=== PATIENT | female | born 1945 | race Native Hawaiian/Other Pacific Islander ===

== ENCOUNTER 2016-11-19 08:49 | Outpatient (CLI) | payer OTHER | END 2016-11-19 19:00 | disposition home or self-care (01) | LOC: MAMMO 08:49 | DX: Z12.31 Encounter for screening mammogram for malignant neoplasm of breast (principal) | CPT/HCPCS: G0202-TC ==

== ENCOUNTER 2016-12-17 08:46 | Outpatient (CLI) | payer OTHER | END 2016-12-17 09:50 | disposition home or self-care (01) | LOC: MRI 08:46 | DX: M54.6 Pain in thoracic spine (principal); S22.000A Wedge compression fracture of unspecified thoracic vertebra, initial encounter for closed fracture ==

== ENCOUNTER 2017-04-15 09:47 | Outpatient (CLI) | payer OTHER | END 2017-04-15 10:50 | disposition home or self-care (01) | LOC: LABW 09:47 | DX: E16.1 Other hypoglycemia (principal); K92.2 Gastrointestinal hemorrhage, unspecified | CPT/HCPCS: 82270 ==

== ENCOUNTER 2017-07-08 07:34 | Outpatient (CLI) | payer OTHER ==
[2017-07-08 08:25] LABS: PLATELET COUNT 166 K/uL (152-353)
[2017-07-08 08:26] LABS: POTASSIUM 4.6 mmol/L (3.6-5.2)
== END 2017-07-08 21:54 | disposition home or self-care (01) ==
LOC: LABW 07:34
PROVIDERS: Nurse Practitioner Family
DX: E11.9 Type 2 diabetes mellitus without complications (principal); I10 Essential (primary) hypertension; E78.4 Other hyperlipidemia; D64.89 Other specified anemias
CPT/HCPCS: 36415; 80053; 80061; 83036; 85027

== ENCOUNTER 2017-11-21 08:23 | Outpatient (CLI) | payer OTHER | END 2017-11-21 22:40 | disposition home or self-care (01) | LOC: MAMMO 08:23 | DX: Z12.31 Encounter for screening mammogram for malignant neoplasm of breast (principal) ==

== ENCOUNTER 2018-07-06 09:48 | Outpatient (CLI) | payer OTHER | END 2018-07-06 22:59 | disposition home or self-care (01) | LOC: MAMMO 09:48 | DX: Z12.31 Encounter for screening mammogram for malignant neoplasm of breast (principal); N63.0 Unspecified lump in unspecified breast; R92.8 Other abnormal and inconclusive findings on diagnostic imaging of breast ==

== ENCOUNTER 2018-07-14 07:48 | Outpatient (CLI) | payer OTHER | END 2018-07-14 22:44 | disposition home or self-care (01) | LOC: US 07:48 | DX: N63.0 Unspecified lump in unspecified breast (principal); R92.8 Other abnormal and inconclusive findings on diagnostic imaging of breast ==

== ENCOUNTER 2018-08-18 09:48 | Outpatient (CLI) | payer OTHER ==
[2018-08-18 10:24] LABS: PLATELET COUNT 175 K/uL (152-353)
[2018-08-18 10:29] LABS: POTASSIUM 4.2 mmol/L (3.6-5.2)
== END 2018-08-18 19:20 | disposition home or self-care (01) ==
LOC: RESP 09:48
PROVIDERS: Surgery
DX: C50.919 Malignant neoplasm of unspecified site of unspecified female breast (principal)
CPT/HCPCS: 36415; 80048; 85027; 93005

== ENCOUNTER 2018-08-25 13:27 | Outpatient (CLI) | payer OTHER ==
[2018-08-25 14:00] LABS: PLATELET COUNT 160 K/uL (152-353)
[2018-08-25 14:30] LABS: POTASSIUM 4.4 mmol/L (3.6-5.2)
== END 2018-08-25 20:33 | disposition home or self-care (01) ==
LOC: LABW 13:27
PROVIDERS: Internal Medicine Gastroenterology
DX: D50.8 Other iron deficiency anemias (principal)
CPT/HCPCS: 36415; 80053; 82728; 82746; 83540; 83550; 85027; 85044

== ENCOUNTER 2018-08-26 08:18 | Outpatient (CLI) | payer OTHER | END 2018-08-26 21:01 | disposition home or self-care (01) | LOC: LAB 08:18 | DX: D50.8 Other iron deficiency anemias (principal) | CPT/HCPCS: 82272 ==

== ENCOUNTER 2019-03-30 10:13 | Outpatient (CLI) | payer OTHER | END 2019-03-30 20:09 | disposition home or self-care (01) | LOC: LABW 10:13 | DX: D64.9 Anemia, unspecified (principal) | CPT/HCPCS: 36415; 83540; 83550 ==

== ENCOUNTER 2019-06-15 08:24 | Outpatient (CLI) | payer OTHER | END 2019-06-15 19:34 | disposition home or self-care (01) | LOC: US 08:24 | DX: E11.9 Type 2 diabetes mellitus without complications (principal); I10 Essential (primary) hypertension; E78.49 Other hyperlipidemia; M79.604 Pain in right leg; N19 Unspecified kidney failure ==

== ENCOUNTER 2019-07-12 09:28 | Outpatient (CLI) | payer OTHER | END 2019-07-12 22:37 | disposition home or self-care (01) | LOC: MAMMO 09:28 | DX: C50.912 Malignant neoplasm of unspecified site of left female breast (principal); Z17.0 Estrogen receptor positive status [ER+]; N64.89 Other specified disorders of breast | CPT/HCPCS: G0279 ==

== ENCOUNTER 2019-09-15 14:39 | Outpatient (CLI) | payer OTHER ==
[2019-09-15 14:59] LABS: PLATELET COUNT 123 K/uL (152-353)
[2019-09-15 15:07] LABS: POTASSIUM 4.7 mmol/L (3.6-5.2)
== END 2019-09-15 21:47 | disposition home or self-care (01) ==
LOC: LABW 14:39
PROVIDERS: Internal Medicine
DX: I12.9 Hypertensive chronic kidney disease with stage 1 through stage 4 chronic kidney disease, or unspecified chronic kidney disease (principal); N18.3 Chronic kidney disease, stage 3 (moderate); E11.29 Type 2 diabetes mellitus with other diabetic kidney complication
CPT/HCPCS: 36415; 80048; 81000; 82040; 82570; 83883; 84100; 84155; 84550; 85027; 86038

== ENCOUNTER 2019-10-07 08:47 | Outpatient (CLI) | payer OTHER | END 2019-10-07 21:50 | disposition home or self-care (01) | LOC: LAB 08:47 | DX: K64.0 First degree hemorrhoids (principal) | CPT/HCPCS: 82272 ==

== ENCOUNTER 2020-05-29 11:48 | Outpatient (CLI) | payer OTHER ==
[2020-05-29 12:27] LABS: PLATELET COUNT 132 K/uL (152-353)
== END 2020-05-29 23:14 | disposition home or self-care (01) ==
LOC: LABW 11:48
PROVIDERS: ATTEND Nurse Practitioner Family
DX: D69.3 Immune thrombocytopenic purpura (principal)
CPT/HCPCS: 36415; 85027

== ENCOUNTER 2020-07-24 09:04 | Outpatient (CLI) | payer OTHER | END 2020-07-24 19:28 | disposition home or self-care (01) | LOC: MAMMO 09:04 | PROVIDERS: ATTEND Nurse Practitioner Family | DX: Z12.31 Encounter for screening mammogram for malignant neoplasm of breast (principal); Z85.3 Personal history of malignant neoplasm of breast; E11.9 Type 2 diabetes mellitus without complications; E78.49 Other hyperlipidemia; I10 Essential (primary) hypertension | CPT/HCPCS: G0279 ==

== ENCOUNTER 2020-11-02 07:56 | Outpatient (CLI) | payer OTHER ==
[2020-11-02 08:45] LABS: PLATELET COUNT 115 K/uL (152-353)
[2020-11-02 09:11] LABS: POTASSIUM 6.3 mmol/L (3.6-5.2)
== END 2020-11-02 20:18 | disposition home or self-care (01) ==
LOC: LABW 07:56
PROVIDERS: ATTEND Internal Medicine Gastroenterology
DX: D50.8 Other iron deficiency anemias (principal)
CPT/HCPCS: 36415; 80053; 82728; 82746; 83540; 83550; 85027; 85044

== ENCOUNTER 2020-11-02 10:25 | Emergency (ER) | payer OTHER ==
[~2020-11-02] VITALS: Ht 152.4 cm; Wt 79.4 kg
[2020-11-02 10:30] VITALS: BP 175/56; TEMP 97.1
[2020-11-02 11:31] LABS: POTASSIUM 5.6 mmol/L (3.6-5.2)
== END 2020-11-02 11:54 | disposition home or self-care (01) ==
LOC: ED 10:25
PROVIDERS: Emergency Medicine Emergency Medical Services
DX: E87.5 Hyperkalemia (principal)
CPT/HCPCS: 80048; 93005; 99283

== ENCOUNTER 2020-11-07 08:14 | Outpatient (CLI) | payer OTHER | END 2020-11-07 19:18 | disposition home or self-care (01) | LOC: LAB 08:14 | PROVIDERS: ATTEND Internal Medicine Gastroenterology | DX: D50.8 Other iron deficiency anemias (principal) | CPT/HCPCS: 82272 ==

== ENCOUNTER 2020-12-01 09:34 | Outpatient (CLI) | payer OTHER | END 2020-12-01 19:29 | disposition home or self-care (01) | LOC: CT 09:34 | PROVIDERS: ATTEND Nurse Practitioner Family | DX: Z85.89 Personal history of malignant neoplasm of other organs and systems (principal); R63.4 Abnormal weight loss; R97.8 Other abnormal tumor markers; N19 Unspecified kidney failure | CPT/HCPCS: 36415; 82565; 84520; Q9963 ==

== ENCOUNTER 2020-12-07 13:01 | Outpatient (CLI) | payer OTHER | END 2020-12-07 19:12 | disposition home or self-care (01) | LOC: MRI 13:01 | PROVIDERS: ATTEND Nurse Practitioner Family | DX: K86.89 Other specified diseases of pancreas (principal); R97.8 Other abnormal tumor markers; R97.0 Elevated carcinoembryonic antigen [CEA]; R63.4 Abnormal weight loss | CPT/HCPCS: A9576 ==

== ENCOUNTER 2021-02-12 09:26 | Outpatient (CLI) | payer OTHER ==
[2021-02-12 09:41] LABS: PLATELET COUNT 111 K/uL (152-353)
[2021-02-12 10:23] LABS: POTASSIUM 4.1 mmol/L (3.6-5.2)
== END 2021-02-12 21:47 | disposition home or self-care (01) ==
LOC: LABW 09:26
PROVIDERS: ATTEND Internal Medicine Medical Oncology
DX: C25.1 Malignant neoplasm of body of pancreas (principal); C25.9 Malignant neoplasm of pancreas, unspecified; C50.812 Malignant neoplasm of overlapping sites of left female breast; K86.2 Cyst of pancreas; R97.8 Other abnormal tumor markers; E55.9 Vitamin D deficiency, unspecified
CPT/HCPCS: 36415; 80053; 85027

== ENCOUNTER 2021-02-26 09:01 | Outpatient (CLI) | payer OTHER ==
[2021-02-26 09:31] LABS: PLATELET COUNT 87 K/uL (152-353)
[2021-02-26 09:40] LABS: POTASSIUM 4.1 mmol/L (3.6-5.2)
== END 2021-02-26 20:58 | disposition home or self-care (01) ==
LOC: LABW 09:01
PROVIDERS: ATTEND Internal Medicine Medical Oncology
DX: C25.1 Malignant neoplasm of body of pancreas (principal); C25.9 Malignant neoplasm of pancreas, unspecified; C50.812 Malignant neoplasm of overlapping sites of left female breast; K86.2 Cyst of pancreas; R97.8 Other abnormal tumor markers; E55.9 Vitamin D deficiency, unspecified
CPT/HCPCS: 36415; 80053; 85027

== ENCOUNTER 2021-03-04 09:42 | Emergency (ER) | payer OTHER ==
[~2021-03-04] VITALS: Ht 152.4 cm; Wt 71.7 kg
[2021-03-04 10:28] VITALS: BP 118/73; TEMP 99.2
== END 2021-03-04 10:28 | disposition home or self-care (01) ==
LOC: ED 09:42
DX: L03.114 Cellulitis of left upper limb (principal)
CPT/HCPCS: 99282

== ENCOUNTER 2021-03-18 08:38 | Outpatient (CLI) | payer OTHER ==
[2021-03-18 09:00] LABS: PLATELET COUNT 132 K/uL (152-353)
[2021-03-18 09:11] LABS: POTASSIUM 4.4 mmol/L (3.6-5.2)
== END 2021-03-18 20:08 | disposition home or self-care (01) ==
LOC: LABW 08:38
PROVIDERS: ATTEND Internal Medicine Medical Oncology
DX: C50.812 Malignant neoplasm of overlapping sites of left female breast (principal); C25.1 Malignant neoplasm of body of pancreas; E55.9 Vitamin D deficiency, unspecified; K86.2 Cyst of pancreas; R97.8 Other abnormal tumor markers; D69.59 Other secondary thrombocytopenia; K59.03 Drug induced constipation
CPT/HCPCS: 36415; 80053; 85027

== ENCOUNTER 2021-03-26 08:21 | Outpatient (CLI) | payer OTHER ==
[2021-03-26 08:43] LABS: PLATELET COUNT 54 K/uL (152-353)
[2021-03-26 09:01] LABS: POTASSIUM 4.2 mmol/L (3.6-5.2)
== END 2021-03-26 18:51 | disposition home or self-care (01) ==
LOC: LABW 08:21
PROVIDERS: ATTEND Internal Medicine Medical Oncology
DX: C50.812 Malignant neoplasm of overlapping sites of left female breast (principal); C25.1 Malignant neoplasm of body of pancreas; C25.9 Malignant neoplasm of pancreas, unspecified; L02.818 Cutaneous abscess of other sites; E55.9 Vitamin D deficiency, unspecified; K86.2 Cyst of pancreas; R97.8 Other abnormal tumor markers; D69.59 Other secondary thrombocytopenia; K59.03 Drug induced constipation
CPT/HCPCS: 36415; 80053; 85027

== ENCOUNTER 2021-04-09 09:07 | Outpatient (CLI) | payer OTHER ==
[2021-04-09 09:31] LABS: PLATELET COUNT 135 K/uL (152-353)
[2021-04-09 09:54] LABS: POTASSIUM 4.4 mmol/L (3.6-5.2)
== END 2021-04-09 19:48 | disposition home or self-care (01) ==
LOC: LABW 09:07
PROVIDERS: ATTEND Internal Medicine Medical Oncology
DX: L02.91 Cutaneous abscess, unspecified (principal); C25.1 Malignant neoplasm of body of pancreas; C25.9 Malignant neoplasm of pancreas, unspecified; C50.812 Malignant neoplasm of overlapping sites of left female breast; D69.59 Other secondary thrombocytopenia; K59.03 Drug induced constipation; K86.2 Cyst of pancreas; R97.8 Other abnormal tumor markers; E55.9 Vitamin D deficiency, unspecified
CPT/HCPCS: 36415; 80053; 85027

== ENCOUNTER 2021-04-23 09:06 | Outpatient (CLI) | payer OTHER ==
[2021-04-23 09:21] LABS: PLATELET COUNT 109 K/uL (152-353)
[2021-04-23 09:37] LABS: POTASSIUM 4.7 mmol/L (3.6-5.2)
== END 2021-04-23 20:53 | disposition home or self-care (01) ==
LOC: LABW 09:06
PROVIDERS: ATTEND Internal Medicine Medical Oncology
DX: L02.91 Cutaneous abscess, unspecified (principal); C25.1 Malignant neoplasm of body of pancreas; C25.9 Malignant neoplasm of pancreas, unspecified; C50.812 Malignant neoplasm of overlapping sites of left female breast; D69.59 Other secondary thrombocytopenia; K59.03 Drug induced constipation; K86.2 Cyst of pancreas; R97.8 Other abnormal tumor markers; E55.9 Vitamin D deficiency, unspecified
CPT/HCPCS: 36415; 80053; 85027

== ENCOUNTER 2021-06-05 07:52 | Outpatient (CLI) | payer OTHER ==
[2021-06-05 08:20] LABS: PLATELET COUNT 313 K/uL (152-353)
[2021-06-05 08:33] LABS: POTASSIUM 4.3 mmol/L (3.6-5.2)
== END 2021-06-05 18:54 | disposition home or self-care (01) ==
LOC: LABW 07:52
PROVIDERS: ATTEND Internal Medicine Medical Oncology
DX: L02.818 Cutaneous abscess of other sites (principal); C25.1 Malignant neoplasm of body of pancreas; C25.9 Malignant neoplasm of pancreas, unspecified; C50.812 Malignant neoplasm of overlapping sites of left female breast; D69.59 Other secondary thrombocytopenia; K59.03 Drug induced constipation; K86.2 Cyst of pancreas; R97.8 Other abnormal tumor markers; E55.9 Vitamin D deficiency, unspecified
CPT/HCPCS: 36415; 80053; 85027; 86316

== ENCOUNTER 2021-07-27 08:45 | Outpatient (CLI) | payer OTHER | END 2021-07-27 18:52 | disposition home or self-care (01) | LOC: MAMMO 08:45 | PROVIDERS: ATTEND Nurse Practitioner Family | DX: C50.512 Malignant neoplasm of lower-outer quadrant of left female breast (principal); Z17.0 Estrogen receptor positive status [ER+] | CPT/HCPCS: G0279 ==

== ENCOUNTER 2021-10-31 10:11 | Outpatient (CLI) | payer OTHER | END 2021-10-31 18:55 | disposition home or self-care (01) | LOC: RAD 10:11 | PROVIDERS: ATTEND Nurse Practitioner Family | DX: R05.3 Chronic cough (principal) ==

== ENCOUNTER 2021-12-26 07:36 | Outpatient (CLI) | payer OTHER | END 2021-12-26 23:20 | disposition home or self-care (01) | LOC: RAD 07:36 | PROVIDERS: ATTEND Internal Medicine Medical Oncology | DX: Z51.11 Encounter for antineoplastic chemotherapy (principal); C50.912 Malignant neoplasm of unspecified site of left female breast; I10 Essential (primary) hypertension; C25.1 Malignant neoplasm of body of pancreas; C25.9 Malignant neoplasm of pancreas, unspecified; C50.812 Malignant neoplasm of overlapping sites of left female breast; I82.402 Acute embolism and thrombosis of unspecified deep veins of left lower extremity; D50.8 Other iron deficiency anemias; K90.89 Other intestinal malabsorption; N95.8 Other specified menopausal and perimenopausal disorders ==

== ENCOUNTER 2022-04-29 11:17 | Outpatient (CLI) | payer OTHER | END 2022-04-29 19:05 | disposition home or self-care (01) | LOC: RAD 11:17 | PROVIDERS: ATTEND Nurse Practitioner Family | DX: M79.602 Pain in left arm (principal); M25.512 Pain in left shoulder ==

== ENCOUNTER 2022-07-05 09:27 | Emergency (ER) | payer OTHER ==
[~2022-07-05] VITALS: Ht 152.4 cm; Wt 78.9 kg
[2022-07-05 09:30] VITALS: BP 155/65; TEMP 99.1
== END 2022-07-05 11:07 | disposition home or self-care (01) ==
LOC: ED 09:27
DX: E11.649 Type 2 diabetes mellitus with hypoglycemia without coma (principal)
CPT/HCPCS: 99282

== ENCOUNTER 2022-07-29 08:52 | Outpatient (CLI) | payer OTHER | END 2022-07-29 19:38 | disposition home or self-care (01) | LOC: MAMMO 08:52 | PROVIDERS: ATTEND Nurse Practitioner Family | DX: Z12.31 Encounter for screening mammogram for malignant neoplasm of breast (principal); Z85.3 Personal history of malignant neoplasm of breast; Z08 Encounter for follow-up examination after completed treatment for malignant neoplasm; E11.9 Type 2 diabetes mellitus without complications; I10 Essential (primary) hypertension; E78.49 Other hyperlipidemia; R60.0 Localized edema; M79.604 Pain in right leg; G57.90 Unspecified mononeuropathy of unspecified lower limb | CPT/HCPCS: G0279 ==

== ENCOUNTER 2022-07-30 08:34 | Outpatient (CLI) | payer OTHER | END 2022-07-30 19:17 | LOC: US 08:34 | PROVIDERS: ATTEND Nurse Practitioner Family | DX: E11.9 Type 2 diabetes mellitus without complications (principal); I10 Essential (primary) hypertension; E78.49 Other hyperlipidemia; R60.0 Localized edema; M79.604 Pain in right leg; G57.90 Unspecified mononeuropathy of unspecified lower limb ==